=== PATIENT | female | born 1975 | race American Indian/Alaskan Native ===

== ENCOUNTER 2020-03-24 08:51 | Emergency (ER) | payer SELFPAY ==
[2020-03-24 08:58] VITALS: BP 156/93
--- NOTE | 2020-03-24 09:45 | Emergency Department Report ---
ED General Adult HPI - General Chief complaint: Earache Stated complaint: PAIN IN RT EAR Time Seen by Provider: 03/24/20 09:37 Source: patient Mode of arrival: Ambulatory Limitations: No Limitations - History of Present Illness Initial comments: 44-year-old -[place] female patient presents with complaints of right ear pain x4 days. She denies any trauma to the use of Q-tips, decreased hearing, ringing in the ears, drainage from the ear, fever/chills/sweats, cough, or swollen lymph nodes. She rates her pain is 8/10 in severity and denies tr lalitha any OTC medication for her symptoms. She does admit to some nasal congestion and sinus pressure. - Related Data Home Medications Medication Instructions Recorded Confirmed Last Taken lisinopriL [Zestril] 5 mg PO QDAY 12/06/15 12/06/15 Unknown Previous Rx's Medication Instructions Recorded Last Taken Type Ibuprofen [Motrin 800 MG tab] 800 mg PO Q8HR PRN #15 tablet 04/19/16 Unknown Rx Levocetirizine Dihydrochloride 5 mg PO QHS PRN #12 tablet 03/24/20 Unknown Rx [Xyzal] Prednisone [predniSONE 10 mg 10 mg PO .TAPER #1 tab.ds.pk 03/24/20 Unknown Rx (6-Day Pack, 21 Tabs)] Allergies Allergy/AdvReac Type Severity Reaction Status Date / Time No Known Allergies Allergy Verified 03/24/20 08:52 ED Review of Systems ROS: Stated complaint: PAIN IN RT EAR Other details as noted in HPI Constitutional: denies: chills, diaphoresis, fever, malaise ENT: ear pain. denies: throat pain, dental pain, hearing loss Respiratory: denies: cough, shortness of breath Cardiovascular: denies: chest pain Gastrointestinal: denies: nausea, vomiting Neurological: denies: headache, numbness, paresthesias, vertigo Hematological/Lymphatic: denies: swollen glands ED Past Medical Hx - Past Medical History Hx Hypertension: Yes Additional medical history: Vaginal delivery x 2 - Surgical History Additional Surgical History: - Social History Smoking Status: Never Smoker Substance Use Type: Alcohol - Medications Home Medications: Home Medications Medication Instructions Recorded Confirmed Last Taken Type lisinopriL [Zestril] 5 mg PO QDAY 09/28/16 09/28/16 Unknown History Ibuprofen [Motrin 800 MG tab] 800 mg PO Q8HR PRN #15 tablet 04/19/16 Unknown Rx Levocetirizine Dihydrochloride 5 mg PO QHS PRN #12 tablet 03/24/20 Unknown Rx [Xyzal] Prednisone [predniSONE 10 mg 10 mg PO .TAPER #1 tab.ds.pk 03/24/20 Unknown Rx (6-Day Pack, 21 Tabs)] ED Physical Exam - General Limitations: No Limitations General appearance: alert, in no apparent distress - Head Head exam: Present: atraumatic, normocephalic - Eye Eye exam: Present: normal appearance. Absent: scleral icterus - ENT ENT exam: Present: normal exam, normal orophraynx, TM's normal bilaterally, normal external ear exam, other (Normal sinus tenderness to palpation noted) - Neck Neck exam: Present: normal inspection, full ROM. Absent: lymphadenopathy - Respiratory Respiratory exam: Absent: respiratory distress - Cardiovascular Cardiovascular Exam: Present: regular rate - Extremities Exam Extremities exam: Present: full ROM - Back Exam Back exam: Present: normal inspection - Neurological Exam Neurological exam: Present: alert, oriented X3, normal gait - Psychiatric Psychiatric exam: Present: normal affect, normal mood - Skin Skin exam: Present: warm, dry, intact, normal color. Absent: rash ED Course Vital Signs 03/24/20 08:57 Temperature 98.1 F Pulse Rate 90 Respiratory 18 Rate Blood Pressure 156/93 O2 Sat by Pulse 100 Oximetry ED Medical Decision Making - Medical Decision Making 44-year-old -[place] female patient presents with complaints of right ear pain x4 days. She denies any trauma to the use of Q-tips, decreased hearing, ringing in the ears, drainage from the ear, fever/chills/sweats, cough, or swollen lymph nodes. She rates her pain is 8/10 in severity and denies trying any OTC medication for her symptoms. She does admit to some nasal congestion and sinus pressure. ENT exam is normal. Will treat for fullness in the ear and sinus pain with steroids and antihistamines. Recommend follow-up with primary care doctor in 3 to 5 days. Discussed signs and symptoms that should prompt immediate return to emergency department in detail patient verbalized understanding. She is well- appearing, vitals are WNL, she is stable for discharge home. Critical care attestation.: If time is entered above; I have spent that time in minutes in the direct care of this critically ill patient, excluding procedure time. ED Disposition Clinical Impression: Earache on right Disposition: DC-01 TO HOME OR SELFCARE Is pt being admited?: No Condition: Stable Instructions: Earache, Adult Prescriptions: Levocetirizine Dihydrochloride [Xyzal] 5 mg PO QHS PRN #12 tablet PRN Reason: Congestion Prednisone [predniSONE 10 mg (6-Day Pack, 21 Tabs)] 10 mg PO .TAPER #1 tab.ds.pk Referrals: [facility] [Provider Group] - 3-5 Days
== END 2020-03-24 11:21 | disposition home or self-care (01) ==
LOC: ED 08:51
DX: H92.01 Otalgia, right ear (principal); I10 Essential (primary) hypertension; Z79.1 Long term (current) use of non-steroidal anti-inflammatories (NSAID); Z79.899 Other long term (current) drug therapy
CPT/HCPCS: 99282

== ENCOUNTER 2021-03-07 13:44 | Emergency (ER) | payer SELFPAY ==
--- NOTE | 2021-03-07 14:57 | Emergency Department Report ---
ED ENT HPI - General Chief complaint: Earache Stated complaint: ear pain Time Seen by Provider: 03/07/21 14:36 Source: patient Mode of arrival: Ambulatory Limitations: No Limitations - History of Present Illness MD complaint: ear pain -: days(s) (5) Location: R ear Severity: moderate Quality: stabbing Consistency: constant Worsens with: none Associated Symptoms: denies: fever, cough, gum swelling - Related Data Home Medications Medication Instructions Recorded Confirmed Last Taken lisinopriL [Zestril] 5 mg PO QDAY 12/05/16 12/06/15 Unknown Previous Rx's Medication Instructions Recorded Last Taken Type Ibuprofen [Motrin 800 MG tab] 800 mg PO Q8HR PRN #15 tablet 04/19/16 Unknown Rx Levocetirizine Dihydrochloride 5 mg PO QHS PRN #12 tablet 03/24/20 Unknown Rx [Xyzal] Prednisone [predniSONE 10 mg 10 mg PO .TAPER #1 tab.ds.pk 03/24/20 Unknown Rx (6-Day Pack, 21 Tabs)] Allergies Allergy/AdvReac Type Severity Reaction Status Date / Time No Known Allergies Allergy Verified 03/24/20 08:52 ED Dental HPI - General Chief complaint: Earache Stated complaint: ear pain Time Seen by Provider: 03/07/21 14:36 Source: patient Mode of arrival: Ambulatory Limitations: No Limitations - Related Data Home Medications Medication Instructions Recorded Confirmed Last Taken lisinopriL [Zestril] 5 mg PO QDAY 16 12/06/15 Unknown Previous Rx's Medication Instructions Recorded Last Taken Type Ibuprofen [Motrin 800 MG tab] 800 mg PO Q8HR PRN #15 tablet 04/19/16 Unknown Rx Levocetirizine Dihydrochloride 5 mg PO QHS PRN #12 tablet 03/24/20 Unknown Rx [Xyzal] Prednisone [predniSONE 10 mg 10 mg PO .TAPER #1 tab.ds.pk 03/24/20 Unknown Rx (6-Day Pack, 21 Tabs)] Allergies Allergy/AdvReac Type Severity Reaction Status Date / Time No Known Allergies Allergy Verified 03/24/20 08:52 ED Review of Systems ROS: Stated complaint: ear pain Other details as noted in HPI Comment: All other systems reviewed and negative Constitutional: chills, fever ENT: congestion Respiratory: denies: cough, orthopnea Gastrointestinal: denies: abdominal pain, nausea, vomiting Musculoskeletal: denies: back pain Neurological: denies: headache, weakness, numbness, paresthesias, confusion ED Past Medical Hx - Past Medical History Previous Medical History?: Yes Hx Hypertension: Yes Additional medical history: Vaginal delivery x 2 - Surgical History Past Surgical History?: Yes Additional Surgical History: - Social History Smoking Status: Never Smoker Substance Use Type: Alcohol - Medications Home Medications: Home Medications Medication Instructions Recorded Confirmed Last Taken Type lisinopriL [Zestril] 5 mg PO QDAY 12/06/15 12/06/15 Unknown History Ibuprofen [Motrin 800 MG tab] 800 mg PO Q8HR PRN #15 tablet 04/19/16 Unknown Rx Levocetirizine Dihydrochloride 5 mg PO QHS PRN #12 tablet 03/24/20 Unknown Rx [Xyzal] Prednisone [predniSONE 10 mg 10 mg PO .TAPER #1 tab.ds.pk 03/24/20 Unknown Rx (6-Day Pack, 21 Tabs)] ED Physical Exam - General Limitations: No Limitations General appearance: alert, in no apparent distress - Head Head exam: Present: atraumatic, normocephalic, normal inspection - Eye Eye exam: Present: normal appearance - ENT ENT exam: Present: normal exam (Right tympanic membranes erythema.), normal orophraynx, mucous membranes moist. Absent: TM's normal bilaterally - Neck Neck exam: Present: normal inspection, full ROM. Absent: tenderness, meningismus - Respiratory Respiratory exam: Present: normal lung sounds bilaterally - Cardiovascular Cardiovascular Exam: Present: regular rate, normal rhythm, normal heart sounds - GI/Abdominal GI/Abdominal exam: Present: soft, normal bowel sounds. Absent: distended, tenderness, guarding, rebound, rigid, organomegaly, mass, bruit, pulsatile mass - Extremities Exam Extremities exam: Present: normal inspection, full ROM, normal capillary refill. Absent: tenderness, pedal edema, joint swelling, calf tenderness - Back Exam Back exam: Present: normal inspection, full ROM. Absent: CVA tenderness (R), CVA tenderness (L) - Neurological Exam Neurological exam: Present: alert, oriented X3, CN II-XII intact, normal gait, reflexes normal. Absent: motor sensory deficit - Psychiatric Psychiatric exam: Present: normal mood - Skin Skin exam: Present: warm, intact, normal color ED Course Vital Signs 03/07/21 13:47 Temperature 100.2 F H Pulse Rate 130 H Respiratory 16 Rate Blood Pressure 129/89 [Left] O2 Sat by Pulse 98 Oximetry Critical care attestation.: If time is entered above; I have spent that time in minutes in the direct care of this critically ill patient, excluding procedure time. ED Disposition Clinical Impression: Right otitis media Disposition: HOME / SELF CARE / HOMELESS Is pt being admited?: No Condition: Stable Instructions: Otitis Media, Adult, [id number] Referrals: PRIMARY CARE, [Referring] - 3-5 Days
[2021-03-07] MEDS ORDERED: ACETAMINOPHEN 500 MG TAB ONE (15:07)
[2021-03-07 15:18] VITALS: BP 124/95
== END 2021-03-07 15:25 | disposition home or self-care (01) ==
LOC: ED 13:44
DX: H66.91 Otitis media, unspecified, right ear (principal); I10 Essential (primary) hypertension; Z98.890 Other specified postprocedural states; Z72.89 Other problems related to lifestyle; Z79.899 Other long term (current) drug therapy
CPT/HCPCS: 99282

== ENCOUNTER 2021-04-03 17:40 | Emergency (ER) | payer SELFPAY ==
[2021-04-03 21:24] LABS: Bilirubin,Urine NEG (Negative); Blood,Urine LG (Negative); Color,Urine Yellow (Yellow)
[2021-04-03 21:27] LABS: Protein,Urine >500 mg/dL (Negative)
[2021-04-03 21:28] LABS: HCG Qualitative,Urine Negative (Negative); RBC,Urine < 1.0 /HPF (0.0-6.0); WBC,Urine < 1.0 /HPF (0.0-6.0)
[2021-04-04] MEDS ORDERED: IBUPROFEN 800 MG TAB PO ONE (01:38)
[2021-04-04] MEDS ORDERED: cephALEXin 500 MG CAP PO ONE (01:38)
--- NOTE | 2021-04-04 01:46 | Emergency Department Report ---
ED Female HPI - General Chief complaint: Urogenital-Female Stated complaint: BURN URINATING Time Seen by Provider: 04/04/21 01:37 Source: patient Mode of arrival: Ambulatory Limitations: No Limitations - History of Present Illness Initial comments: Patient 45-year-old female who presents with dysuria frequency and urgency x2 weeks. Patient states she was treated for UTI with more than 2 weeks ago , And developed a yeast infection post treatment. There is dysuria frequency and urgency remains. Patient denies vaginal discharge patient denies concern for STI. There is no fevers no chills no nausea no vomiting no history of renal stones there is no hematuria. MD Complaint: dysuria - Related Data Home Medications Medication Instructions Recorded Confirmed Last Taken lisinopriL [Zestril] 5 mg PO QDAY 12/06/15 12/06/15 Unknown Previous Rx's Medication Instructions Recorded Last Taken Type Ibuprofen [Motrin 800 MG tab] 800 mg PO Q8HR PRN #15 tablet 04/19/16 Unknown Rx Levocetirizine Dihydrochloride 5 mg PO QHS PRN #12 tablet 03/24/20 Unknown Rx [Xyzal] Prednisone [predniSONE 10 mg 10 mg PO .TAPER #1 tab.ds.pk 03/24/20 Unknown Rx (6-Day Pack, 21 Tabs)] Amoxicillin [Amoxicillin TAB] 875 mg PO BID #20 tablet 03/07/21 Unknown Rx Naproxen [Naprosyn] 500 mg PO BID #14 tablet 03/07/21 Unknown Rx cephALEXin [Keflex] 500 mg PO BID 7 Days #14 cap 04/04/21 Unknown Rx Allergies Allergy/AdvReac Type Severity Reaction Status Date / Time No Known Allergies Allergy Verified 03/24/20 08:52 ED Review of Systems ROS: Stated complaint: BURN URINATING Other details as noted in HPI Constitutional: denies: chills, fever Eyes: denies: eye pain, eye discharge, vision change ENT: denies: ear pain, throat pain Respiratory: denies: cough, shortness of breath, wheezing Cardiovascular: denies: chest pain, palpitations Endocrine: no symptoms reported Gastrointestinal: denies: abdominal pain, nausea, vomiting, diarrhea Genitourinary: urgency, dysuria, frequency. denies: hematuria, discharge, abnormal menses, dyspareunia Musculoskeletal: denies: back pain, joint swelling, arthralgia Skin: denies: rash, lesions Neurological: denies: headache, weakness, paresthesias Psychiatric: denies: anxiety, depression Hematological/Lymphatic: denies: easy bleeding, easy bruising ED Past Medical Hx - Past Medical History Previous Medical History?: Yes Hx Hypertension: Yes Additional medical history: Vaginal delivery x 2 - Surgical History Past Surgical History?: Yes Additional Surgical History: - Social History Smoking Status: Never Smoker Substance Use Type: Alcohol - Medications Home Medications: Home Medications Medication Instructions Recorded Confirmed Last Taken Type lisinopriL [Zestril] 5 mg PO QDAY 12/06/15 12/06/15 Unknown History Ibuprofen [Motrin 800 MG tab] 800 mg PO Q8HR PRN #15 tablet 04/19/16 Unknown Rx Levocetirizine Dihydrochloride 5 mg PO QHS PRN #12 tablet 03/24/20 Unknown Rx [Xyzal] Prednisone [predniSONE 10 mg 10 mg PO .TAPER #1 tab.ds.pk 03/24/20 Unknown Rx (6-Day Pack, 21 Tabs)] Amoxicillin [Amoxicillin TAB] 875 mg PO BID #20 tablet 03/07/21 Unknown Rx Naproxen [Naprosyn] 500 mg PO BID #14 tablet 03/07/21 Unknown Rx cephALEXin [Keflex] 500 mg PO BID 7 Days #14 cap 04/04/21 Unknown Rx ED Physical Exam - General Limitations: No Limitations General appearance: alert, in no apparent distress - Head Head exam: Present: atraumatic, normocephalic - Eye Eye exam: Present: normal appearance, EOMI Pupils: Present: normal accommodation - ENT ENT exam: Present: mucous membranes moist - Neck Neck exam: Present: normal inspection - Respiratory Respiratory exam: Present: normal lung sounds bilaterally. Absent: wheezes, stridor - Cardiovascular Cardiovascular Exam: Present: regular rate, normal rhythm, normal heart sounds. Absent: systolic murmur, diastolic murmur, rubs, gallop - GI/Abdominal GI/Abdominal exam: Present: soft, normal bowel sounds. Absent: distended, tend erness, bruit, hernia - Rectal Rectal exam: Present: deferred - Extremities Exam Extremities exam: Present: normal inspection, full ROM. Absent: tenderness - Back Exam Back exam: Present: normal inspection, full ROM. Absent: CVA tenderness (R), CVA tenderness (L) - Neurological Exam Neurological exam: Present: alert, oriented X3, CN II-XII intact - Expanded Neurological Exam Expanded Patient oriented to: Present: person, place, time Motor strength exam: RUE: 5, LUE: 5, RLE: 5, LLE: 5 Best Eye Response ([place]): (4) open spontaneously Best Motor Response ([place]): (6) obeys commands Best Verbal Response ([place]): (5) oriented [place] Total: 15 - Psychiatric Psychiatric exam: Present: normal affect, normal mood - Skin Skin exam: Present: warm, dry, intact, normal color. Absent: rash ED Course Vital Signs 04/03/21 20:13 Temperature 98.8 F Pulse Rate 95 H Respiratory 20 Rate Blood Pressure 151/96 [Right] O2 Sat by Pulse 99 Oximetry ED Medical Decision Making - Lab Data Labs 04/03/21 Unknown Urine Color Yellow Urine Turbidity Cloudy Urine pH 6.0 Ur Specific [place] 1.024 Urine Protein >500 Urine Glucose (UA) Neg Urine Ketones Neg Urine Blood Lg Urine Nitrite Neg Urine Bilirubin Neg Urine Urobilinogen 2.0 Ur Leukocyte Esterase Lg Urine WBC (Auto) < 1.0 Urine RBC (Auto) < 1.0 Urine HCG, Qual Negative - Medical Decision Making Patient treated for UTI, patient will follow with primary care in 2 to 3 days. Patient will return to emergency department should symptoms worsen. Patient verbalized agreement and understanding with discharge plan. Patient DC'd home stable condition at this time. Critical care attestation.: If time is entered above; I have spent that time in minutes in the direct care of this critically ill patient, excluding procedure time. ED Disposition Clinical Impression: Candidal vaginitis UTI (urinary tract infection) Qualifiers: Urinary tract infection type: acute cystitis Hematuria presence: without hematuria Qualified Code(s): N30.00 - Acute cystitis without hematuria Disposition: HOME / SELF CARE / HOMELESS Is pt being admited?: No Does the pt Need Aspirin: No Condition: Stable Instructions: Urinary Tract Infection, Adult, Vaginal Yeast Infection, Adult Additional Instructions: Take medication as prescribed, follow-up with your doctor in 2 to 3 days. Return to emergency department should symptoms worsen. Prescriptions: cephALEXin [Keflex] 500 mg PO BID 7 Days #14 cap Referrals: SHIRLENE AGOSTO MD [Staff Physician] - 3-5 Days Forms: Work/School Release Form(ED) Time of Disposition: 01:47
[2021-04-04] MEDS ORDERED: FLUCONAZOLE 200 MG TAB PO ONE (02:02)
[2021-04-04 02:28] VITALS: BP 140/70
== END 2021-04-04 02:27 | disposition home or self-care (01) ==
LOC: ED 17:40
DX: B37.3 Candidiasis of vulva and vagina (principal); N39.0 Urinary tract infection, site not specified; I10 Essential (primary) hypertension
CPT/HCPCS: 81001; 81025; 99283

== ENCOUNTER 2021-11-27 08:50 | Emergency (ER) | payer SELFPAY ==
[2021-11-27 09:18] VITALS: BP 137/97
[2021-11-27] MEDS ORDERED: IBUPROFEN 800 MG TAB PO ONE (13:10)
[2021-11-27] MEDS ORDERED: dexAMETHasone 4 MG/ML VIAL IM ONE (13:11)
--- NOTE | 2021-11-27 13:30 | Emergency Department Report ---
Minor Respiratory - HPI Chief Complaint: Sore Throat Stated Complaint: SORE THROAT/ YEAST Time Seen by Provider: 11/27/21 12:43 Duration: 3 Days Pain Location: Throat Severity: mild Minor Respiratory: Yes Sore Throat, Yes Able to Tolerate Fluids, No Rhinorrhea, No Ear Pain, No Cough, No Sick Contacts, No Hemoptysis, No Chest Pain, No Shortness of Breath, No Fever Other History: 46 YO COMES IN TO ER WITH SORE THROAT. NO FEVER. NO COUGH. ALSO CO SHE HAS YEAST INFECTION. NO DYSURIA. NO D/C. NO VAG BLEEDING. JUST ITCHING ED Review of Systems ROS: Stated complaint: SORE THROAT/ YEAST Other details as noted in HPI Comment: All other systems reviewed and negative ED Past Medical Hx - Past Medical History Previous Medical History?: Yes Hx Hypertension: Yes Additional medical history: Vaginal delivery x 2 - Surgical History Past Surgical History?: Yes Additional Surgical History: - Family History Family history: no significant - Social History Smoking Status: Never Smoker Substance Use Type: Alcohol - Medications Home Medications: Home Medications Medication Instructions Recorded Confirmed Last Taken Type lisinopriL [Zestril] 5 mg PO QDAY 12/06/15 12/06/15 Unknown History Ibuprofen [Motrin 800 MG tab] 800 mg PO Q8HR PRN #15 tablet 04/19/16 Unknown Rx Levocetirizine Dihydrochloride 5 mg PO QHS PRN #12 tablet 03/24/20 Unknown Rx [Xyzal] Prednisone [predniSONE 10 mg 10 mg PO .TAPER #1 tab.ds.pk 03/24/20 Unknown Rx (6-Day Pack, 21 Tabs)] Amoxicillin [Amoxicillin TAB] 875 mg PO BID #20 tablet 03/07/21 Unknown Rx Naproxen [Naprosyn] 500 mg PO BID #14 tablet 03/07/21 Unknown Rx cephALEXin [Keflex] 500 mg PO BID 7 Days #14 cap 04/04/21 Unknown Rx Amoxicillin [Trimox CAP] 500 mg PO BID #20 capsule 11/27/21 Unknown Rx Fluconazole [Diflucan TAB] 100 mg PO QDAY #2 tablet 11/27/21 Unknown Rx Ibuprofen [Motrin] 800 mg PO Q8HR PRN #30 tablet 11/27/21 Unknown Rx Nystas/Diphen/Xyl Visc/Mylanta 30 ml MM Q4H PRN #200 ml 11/27/21 Unknown Rx [Magic Mouthwash] Minor Respiratory Exam - Exam General: Vital signs noted. No distress. Alert and acting appropriately. HEENT: Yes Pharyngeal Erythema, Yes Pharyngeal Exudates, Yes Moist Mucous Membranes, No Rhinorrhea, No Conjuctival Injection, No Frontal Tenderness, No Maxillary Tenderness Ear: Neither TM Bulge, Neither TM Erythema, Neither EAC Pain, Neither EAC Discharge Neck: Yes Adenopathy, Yes Supple Lungs: Yes Good Air Exchange, No Wheezes, No [place], No Stridor, No Cough, No Labored Respirations, No Retractions, No Use of Accessory Muscles, No Other Abnormal Lung Sounds Heart: Yes Regular, No Murmur Abdomen: Yes Normal Bowel Sounds, No Tenderness, No Peritoneal Signs Skin: No Rash, No Edema Neurologic: Alert and oriented, no deficits. Musculoskeletal: Unremarkable. ED Course Vital Signs 11/27/21 09:15 Temperature 99.7 F H Pulse Rate 120 H Respiratory 16 Rate Blood Pressure 137/97 [Right] O2 Sat by Pulse 100 Oximetry ED Medical Decision Making - Medical Decision Making Vital Signs 11/27/21 09:15 Temperature 99.7 F H Pulse Rate 120 H Respiratory 16 Rate Blood Pressure 137/97 [Right] O2 Sat by Pulse 100 Oximetry Lab Results 11/27/21 Range/Units Unknown Urine Color [place] (Yellow) Urine Turbidity Hazy (Clear) Specific [place] (Man) 1.020 (1.003-1.030) Ur Protein (Man) 2+ (Negative) mg/dL Ur Ketones (Man) 2+ (Negative) Ur Nitrite (Man) Negative (Negative) Ur Reducing Substances Not Reportable Urine Bilirubin (Man) Small (Negative) Urine Ictotest Negative (Negative) Leukocyte Esterase (Man) Negative (Negative) Urine WBC (Auto) 3.0 (0.0-6.0) /HPF Urine RBC (Auto) 15.0 (0.0-6.0) /HPF U Epithel Cells (Auto) 48.0 H (0-13.0) /HPF Urine Bacteria (Auto) 1+ (Negative) /HPF Urine RBC (Manual) 2+ (Negative) Amorphous Crystals Few Hyaline Casts 9 /LPF Urine Mucus 3+ /HPF Urine HCG, Qual Negative (Negative) UA NOTED PREG NEG MEDICATED WITH MOTRIN/TYLENOL/DECADRON HR ON DC 90 TAKING PO WO DIFFICULTY GIVEN DIFLUCAN PO FOR DC DC HOME WITH DC PLAN OF CARE INCLUDING DIET, MEDS, ACTIVITY AND FOLLOW UP SHE VERBALIZES UNDERSTANDING OF PLAN OF CARE. - Differential Diagnosis URI Critical care attestation.: If time is entered above; I have spent that time in minutes in the direct care of this critically ill patient, excluding procedure time. ED Disposition Clinical Impression: Pharyngitis Qualifiers: Pharyngitis/tonsillitis etiology: other specified organisms Qualified Code(s): J02.8 - Acute pharyngitis due to other specified organisms Disposition: 01 HOME / SELF CARE / HOMELESS Is pt being admited?: No Does the pt Need Aspirin: No Condition: Stable Instructions: Strep Throat, Adult, Cwlz-bc-Cine, Pharyngitis, [id number] Additional Instructions: MEDS ORDERED TODAY FOLLOW UP WITH PCP NEXT WEEK TO BE SURE YOU ARE BETTER REFERRAL BELOW Prescriptions: Fluconazole [Diflucan TAB] 100 mg PO QDAY #2 tablet Nystas/Diphen/Xyl Visc/Mylanta [Magic Mouthwash] 30 ml MM Q4H PRN #200 ml PRN Reason: Pain , Severe (7-10) Ibuprofen [Motrin] 800 mg PO Q8HR PRN #30 tablet PRN Reason: Pain, Moderate (4-6) Amoxicillin [Trimox CAP] 500 mg PO BID #20 capsule Referrals: LINA CHARLES MD [Primary Care Provider] - 3-5 Days Forms: Work/School Release Form(ED) Time of Disposition: 16:24
[2021-11-27 15:41] LABS: Amorphous Crystals,Urine Few; Bacteria,Urine 1+ /HPF (Negative); Hyaline Casts,Urine 9 /LPF; Mucus,Urine 3+ /HPF
[2021-11-27 16:05] LABS: Color,Urine Amber (Yellow)
[2021-11-27] MEDS ORDERED: MAGIC MOUTHWASH 30ML PO ONE (16:05)
[2021-11-27] MEDS ORDERED: ACETAMINOPHEN 500 MG TAB PO ONE (16:05)
[2021-11-27 16:06] LABS: HCG Qualitative,Urine Negative (Negative)
[2021-11-27 16:19] LABS: Ictotest,Urine Negative (Negative)
== END 2021-11-27 16:30 | disposition home or self-care (01) ==
LOC: ED 08:50
DX: J02.9 Acute pharyngitis, unspecified (principal); I10 Essential (primary) hypertension; Z98.890 Other specified postprocedural states; Z72.89 Other problems related to lifestyle; Z79.899 Other long term (current) drug therapy
CPT/HCPCS: 81001; 81025; 96372; 99283; J1100